=== PATIENT | male | born 1940 | race Caucasian/White ===

== ENCOUNTER 2019-01-09 16:50 | Emergency (ER) | payer MEDICARE, BC ==
[~2019-01-09] VITALS: Ht 177.8 cm; Wt 97.6 kg
[2019-01-09 17:26] VITALS: BP 136/79
[2019-01-09] MEDS ORDERED: PROPARACAINE OPHTH 0.5%, 15ML RIGHTEYE ONE (17:30)
[2019-01-09] MEDS ORDERED: FLUORESCEIN OPHTHALMIC 1 MG STRIP RIGHTEYE ONE (17:30)
--- NOTE | 2019-01-09 18:22 | NUR ---
pt to room from lobby
[2019-01-09] MEDS ORDERED: PROPARACAINE OPHTH 0.5%, 15ML ONE (18:24)
[2019-01-09] MEDS ORDERED: FLUORESCEIN OPHTHALMIC 1 MG STRIP ONE (18:24)
--- NOTE | 2019-01-09 18:27 | NUR ---
78 y/o male PRESENTS TO ED WITH C/O RIGHT EYE IRRITATION. PT STATES "I DON'T THINK I GOT ANYTHING IN IT. IT JUST HURTS." NO ACUTE DISTRESS NOTED. NO NEEDS REQUESTED AT THIS TIME.
== END 2019-01-09 19:57 | disposition home or self-care (01) ==
LOC: ED 19:51
DX: H10.021 Other mucopurulent conjunctivitis, right eye (principal); H16.041 Marginal corneal ulcer, right eye; I10 Essential (primary) hypertension
CPT/HCPCS: 99283